=== PATIENT | male | born 1960 | race Caucasian/White ===

== ENCOUNTER → 2016-05-25 | Outpatient (CLI) | payer OTHER ==
[~2016-05-25] MED LIST: ACETAMINOPHEN TAB 500 MG TAB PO ONE; LORATADINE 10 MG TAB PO ONE; SODIUM CHLORIDE 0.9% 250 ML in EMPTY BAG 1 BAG IV PRN; SODIUM CHLORIDE 0.9% 500 ML in EMPTY BAG 1 BAG IV PRN
[2016-05-25 09:00] VITALS: BP 150/83; PULSE 55; RESP 20
[2016-05-25 10:09] VITALS: TEMP 98.3
== END ==
LOC: PROCWHC3 07:05
PROVIDERS: ATTEND Physician Assistant
DX: K50.10 Crohn's disease of large intestine without complications (principal)
CPT/HCPCS: 96361; 96413; 96415; J1745

== ENCOUNTER → 2016-07-20 | Outpatient (CLI) | payer BC, OTHER ==
[2016-07-20 07:56] VITALS: TEMP 98.8
[2016-07-20 09:17] VITALS: BP 154/97; PULSE 72; RESP 18
== END ==
LOC: PROCWHC3 07:43
PROVIDERS: ATTEND Physician Assistant
DX: K50.10 Crohn's disease of large intestine without complications (principal)
CPT/HCPCS: 96361; 96413; 96415; J1745

== ENCOUNTER → 2018-11-15 | Outpatient (CLI) | payer BC, OTHER | END | disposition home or self-care (01) | LOC: LABWHC1 14:10 | PROVIDERS: ATTEND Orthopaedic Surgery Orthopaedic Surgery of the Spine | DX: Z01.812 Encounter for preprocedural laboratory examination (principal); M50.223 Other cervical disc displacement at C6-C7 level | CPT/HCPCS: 86850; 86900; 86901 ==

== ENCOUNTER 2018-11-16 06:34 | Day surgery (SDC) | payer BC, OTHER ==
[2018-11-15 09:07] VITALS: BMI 25.7
[~2018-11-16 06:34] MED LIST changes: -ACETAMINOPHEN TAB 500 MG TAB PO ONE; +BACITRACIN 50,000 UNIT, POLYMYXIN B 500,000 UNIT in SODIUM CHLORIDE 0.9% IRRIGATIO 1,00... IRRIGATION ONE; +LACTATED RINGERS 1,000 ML IV SCH; +LIDOCAINE 1% 20 ML VIAL (10MG/ML) FOR IV START INTRADERMA PRN; -LORATADINE 10 MG TAB PO ONE; +ONDANSETRON 4 MG/2 ML VIAL IVP ONE; -SODIUM CHLORIDE 0.9% 250 ML in EMPTY BAG 1 BAG IV PRN; -SODIUM CHLORIDE 0.9% 500 ML in EMPTY BAG 1 BAG IV PRN; +ceFAZolin IN SWFI 2 GM/20 ML SYRINGE IVP ONE
[2018-11-16] MEDS ORDERED: PROPOFOL 10 MG/ML 20 ML VIAL IV ONE (07:24)
[2018-11-16] MEDS ORDERED: MIDAZOLAM 2 MG/2 ML VIAL ONE (07:24)
[2018-11-16] MEDS ORDERED: SUCCINYLCHOLINE CHLORIDE 100 MG/5 ML SYR IV ONE (07:24)
[2018-11-16] MEDS ORDERED: fentaNYL (PF) 50 MCG/ML 2 ML AMP ONE (07:24)
[2018-11-16] MEDS ORDERED: LIDOCAINE 1% INJ 10MG/ML (20 ML MDV) ONE (07:24)
[2018-11-16] MEDS ORDERED: DEXAMETHASONE SOD PHOS (MDV) 100 MG/10 ML VIAL ONE (07:24)
[2018-11-16] MEDS ORDERED: GELATIN SPONGE,ABSORB (LARGE) 1 EACH SPONGE TOPICAL ONE (08:00)
[2018-11-16] MEDS ORDERED: LIDOCAINE 0.5%-EPI 1:200,000 50 ML VIAL SQ ONE (08:00)
[2018-11-16] MEDS ORDERED: THROMBIN (BOVINE) 5,000 UNIT VIAL TOPICAL ONE (08:00)
[2018-11-16] MEDS ORDERED: LACTATED RINGERS 1,000 ML IV ONE (09:08)
[2018-11-16] MEDS ORDERED: HYDROmorphone 0.5 MG/0.5 ML SYRINGE IVP PRN (09:19)
[2018-11-16] MEDS ORDERED: BENZOCAINE/MENTHOL LOZENG 1 EACH LOZENGE MUCOUS MEM PRN (09:19)
[2018-11-16] MEDS ORDERED: ONDANSETRON 4 MG/2 ML VIAL IVP PRN (09:19)
[2018-11-16] MEDS ORDERED: HYDROmorphone 1 MG/ML 1 ML SYRINGE IVP PRN (09:19)
[2018-11-16] MEDS ORDERED: HYDROcodone/APAP 5-325MG 1 EACH TAB PO PRN (09:19)
--- NOTE | 2018-11-16 09:26 | P.OP ---
Date of Procedure: 11/16/18 Preoperative Diagnosis: Herniated nucleus pulposus C6 7, right upper shoulder radiculopathy, right upper shoulder and weakness, neck pain Postoperative Diagnosis: Same Anesthesia: GETA Pathology: none sent Condition: stable Disposition: PACU Description of Procedure: BRIEF OPERATIVE NOTE Preoperative Diagnosis:Herniated nucleus pulposus C6 7, right upper shoulder radiculopathy, right upper shoulder and weakness, neck pain Postoperative Diagnosis:Herniated nucleus pulposus C6 7, right upper shoulder radiculopathy, right upper shoulder and weakness, neck pain Procedure: Anterior cervical decompression with discectomy and fusion C6 7 Placement of interbody graft C6 7 Application of anterior cervical plate C6 7 Surgeon: Dr. Ho Senior Behavioral Scientist: Abdiaziz DEL ANGEL who is present throughout the entire the case persistence during positioning, dissection, exposure, visualization, and all crucial elements of the case as well as closure. Anesthesia: General anesthesia Estimated blood loss: Approximately 20 mL Complications: None apparent Components implanted: K2M [place] anterior cervical plate system with screws and a ViKos interbody allograft bone graft Disposition: To recovery room in good stable condition. OPERATIVE INDICATIONS The patient has had significant and severe issues in their neck and upper extremities. He was having significant numbness and tingling and some weakness at his right upper extremity which is causing him significant debility. He was found have a disc herniation with extruded fragment at C6 7 with correlate well with his neck and upper extremity symptoms. The patient has been through conservative treatment. He is not having any lasting benefit despite aggressive conservative care We discussed various treatment options including surgery, and the patient wishes to proceed with surgery We discussed the risk, patient's alternatives and benefits of surgery including but not limited to, risk of bleeding risk of infection, risk of need for further surgery, risk of decreased, loss of motion, muscle function, malunion nonunion, hardware failure, nerve damage, paralysis, heart attack, and . OPERATIVE SUMMARY After discussing all the risks, patient alternatives and benefits at length, the patient elected to proceed with surgical intervention, signed informed consent, and presented for their procedure. The patient was seen and examined in the preoperative holding area and the surgical site was marked. The patient was given antibiotics and brought to the operating room. The patient was positioned on the operating room table in a supine position being careful to pad any bony prominences and pressure points. The patient was sedated and intubated by anesthesia in standard fashion. Once the airway and C- spine were stabilized the patient's arms were padded and tucked at her side, with her shoulders gently taped. The head was placed in a donut pad with the neck in good neutral alignment and position. We were careful to maintain the patient's cervical spine and good neutral alignment and position throughout. The patient was prepped and draped in a normal standard fashion. An appropriate timeout and keystone protocol performed. We were able to proceed with the surgery. The local wound area was infiltrated with local anesthetic. An incision was made transversely approximately 2-1/2 cm over the appropriate levels of C6 7. Dissection was taken down subcutaneously to the level of the platysma which was split in line with its fibers. Dissection was taken with a carotid approach, with the trachea and esophagus medial and the carotid sheath laterally. We dissected down to the anterior surface of the vertebral bodies of C6 7. Intraoperative x-ray was taken which showed a marker at the appropriate level of C6 vertebral body. With the appropriate level positively confirmed, we were able to proceed with discectomy at the appropriate levels of C6 7. All of the operative levels were exposed appropriately. The patient had all their twitches back, and there was no evidence of recurrent laryngeal issue. The wound was copiously irrigated and suctioned dry as had been done periodically throughout the case. At the appropriate level/levels of C6 and 7, I established an annulotomy with an 11 blade scalpel. A discectomy was performed with a combination of pituitary rongeurs, curettes, a high-speed bur, and Kerrison rongeurs. The posterior longitudinal ligament was taken down as were any posterior osteophytes. There was note of obvious disc herniation with extruded disc fragments particular to the right side causing severe right foraminal stenosis. These disc herniations were removed appropriately. This gave good central and bilateral foraminal decompression. There is no evidence of any dural tear or leak. The endplates were prepared with a high-speed bur. With the endplates in good parallel position, I was able to size for the appropriate size interbody graft. The wound was irrigated and suctioned dry the graft was prepared and malleted into position. It had good alignment and position with the anterior surface flush with the anterior surface of the vertebral bodies of C6 7. With the grafts intact, I was able to measure and contour and appropriate sized plate. The plate was positioned at the midline over the appropriate levels of C6 7. Screw holes were established with a hand drill and drill guide. Screws were placed in good alignment and position with excellent bony purchase. They were seated under the locking device. The construct was checked and found to be stable. Intraoperative x-ray was taken which showed good alignment and position of the implants at the appropriate levels. There was no evidence of any dural tear or leak. Good hemostasis was maintained. The wound was copiously irrigated and suctioned dry as had been done periodically throughout the case. The platysma was closed with absorbable suture. The subcutaneous tissue was closed. The subcuticular tissue was closed with absorbable suture. The wound was cleaned and dried and dressed appropriately. A soft cervical collar was placed appropriately. The patient was woken up by anesthesia, extubated, transferred back gently to their hospital bed and brought to the recovery room in good stable condition. The patient will be admitted to the hospital for appropriate postoperative care, medical management and monitoring. We will continue to follow them closely about the postoperative course.
[2018-11-16] MEDS ORDERED: SODIUM CHLORIDE 0.9% 1,000 ML IV SCH (09:30)
[2018-11-16 09:36] VITALS: TEMP 97.1
[2018-11-16] MEDS ORDERED: hydrALAZINE HCL 20 MG/ML 1 ML VIAL IVP ONE (09:40)
[2018-11-16] MEDS: HYDROmorphone 0.5 MG/0.5 ML SYRINGE IVP PRN ×2 (09:47→09:54)
[2018-11-16 10:45] VITALS: RESP 18
[2018-11-16 10:47] VITALS: BP 129/74; PULSE 68
--- NOTE | 2018-11-16 10:59 | XR ---
EXAMINATION TYPE: XR cervical spine 1V, XR cervical spine 1V DATE OF EXAM: 11/16/2018 COMPARISON: NONE HISTORY: Needle placement. Neck pain. Cervical spinal surgery. TECHNIQUE/FINDINGS: Single crosstable lateral view of the cervical spine was obtained in the OR. Initial image demonstrat es needle localization at the C6 vertebral body. Patient is noted to be intubated with straightening of usual cervical lordosis and moderate multilevel degenerative disc disease. Visualized vertebral maryana dy heights are maintained. The second image, also intraoperative crosstable lateral demonstrates anterior cervical fusion device bridging the C6-C7 vertebral bodies with nonvisualization of the remainder of the cervical thoracic junction. The patient is again intubated with straightening of usual cervical lordosis and degenerati ve disc disease IMPRESSION: Intraoperative localization of the cervical spine at C6 and subsequent anterior cervical fusion device placement at C6-C7.
[2018-11-16] MEDS ORDERED: ceFAZolin IN SWFI 2 GM/20 ML SYRINGE IVP SCH (16:00)
[2018-11-17] MEDS ORDERED: azaTHIOprine 50 MG TAB PO SCH (09:00)
== END 2018-11-16 11:00 | disposition home or self-care (01) ==
LOC: OR 06:34
PROVIDERS: ATTEND Orthopaedic Surgery Orthopaedic Surgery of the Spine
DX: M50.123 Cervical disc disorder at C6-C7 level with radiculopathy (principal); I10 Essential (primary) hypertension; K50.90 Crohn's disease, unspecified, without complications; Z79.899 Other long term (current) drug therapy; Z88.0 Allergy status to penicillin
CPT/HCPCS: 86900; 86901; 84132; 86850; 72020; 22551; 22845; 20931; C1713; C1762; J2250; J0360; J2405; J2001; J3010; J1100; J0330; J2704; J1170; J0690

== ENCOUNTER → 2018-12-19 | Outpatient (CLI) | payer BC, OTHER ==
--- NOTE | 2018-12-19 12:58 | CT ---
EXAMINATION TYPE: CT angio chest DATE OF EXAM: 12/19/2018 12:43 PM COMPARISON: CT of abdomen and pelvis dated 04/08/2009 HISTORY: Chest pain and shortness of breath. Post OP CSpine [address] DLP: 534 mGycm Automated exposure control for dose reduction was used. CONTRAST: CTA scan of the thorax is performed with IV Contrast, patient injected with 100 mL of Isovue 370, pul monary embolism protocol. . FINDINGS: LUNGS: Small area of pleural-based thickening seen along the posterior medial right lower lobe measur ing 1.6 x 0.6 cm in AP by transverse dimension with groundglass attenuation inferiorly and the small areas of linear scarring/atelectasis. Otherwise, no evidence of suspicious nodules, masses or infiltr ates. There is no pleural effusion or pneumothorax seen. The tracheobronchial tree is patent. MEDIASTINUM: There is satisfactory enhancement of the pulmonary artery and its branches, there is no CT evidence for pulmonary embolism. There are no greater than 1 cm hilar or mediastinal lymph nodes. No pericardial effusion is seen. OTHER: Visualized upper abdomen is grossly unremarkable. Degenerative changes are seen in the thorac ic spine. No acute compression deformity. IMPRESSION: NO EVIDENCE OF PULMONARY EMBOLISM. NONSPECIFIC AREA OF PLEURAL THICKENING SEEN ALONG THE POSTERIOR MEDIAL RIGHT LOWER LOBE, WHICH APPEAR S SIMILAR TO SLIGHTLY INCREASED WHEN COMPARED TO 2008 AND IS FAVORED TO REPRESENT CHRONIC FINDINGS. I F FURTHER EVALUATION IS REQUIRED, CONSIDER REPEAT EXAM IN ONE YEAR TO ENSURE STABILITY.
== END | disposition home or self-care (01) ==
LOC: RADCTMAIN 12:12
PROVIDERS: ATTEND Family Medicine
DX: J98.4 Other disorders of lung (principal)
CPT/HCPCS: 71275

== ENCOUNTER 2020-03-15 11:23 | Day surgery (SDC) | payer BC, OTHER ==
[2020-03-13 12:44] VITALS: BMI 25.7
[~2020-03-15 11:23] MED LIST changes: -BACITRACIN 50,000 UNIT, POLYMYXIN B 500,000 UNIT in SODIUM CHLORIDE 0.9% IRRIGATIO 1,00... IRRIGATION ONE; -LIDOCAINE 1% 20 ML VIAL (10MG/ML) FOR IV START INTRADERMA PRN; -ONDANSETRON 4 MG/2 ML VIAL IVP ONE; -ceFAZolin IN SWFI 2 GM/20 ML SYRINGE IVP ONE
[2020-03-15 12:21] VITALS: RESP 16; TEMP 98.5
[2020-03-15] MEDS ORDERED: PROPOFOL 10 MG/ML 20 ML VIAL IV ONE (12:50)
--- NOTE | 2020-03-15 13:11 | P.PCN ---
Date of Procedure: 03/15/20 Procedure(s) Performed: BRIEF HISTORY: Patient is a 60-year-old pleasant white male scheduled for an elective colonoscopy as a part of surveillance of long-standing history of Crohn's colitis diagnosed in 1997. In the maintained on azathioprine and Remicade infusions and remains in clinical remission. Last colonoscopy was 3 years ago. PROCEDURE PERFORMED: Colonoscopy with biopsy and snare polypectomy. PREOPERATIVE DIAGNOSIS: Long-standing history of Crohn's colitis. IV sedation per Anesthesia. PROCEDURE: After informed consent was obtained, the patient, was brought into the endoscopy unit. IV sedation was administered by Anesthesia under continuous monitoring. Digital rectal examination was normal. Initially the Olympus CF-160 flexible video colonoscope was then inserted in the rectum, gradually advanced into the cecum without any difficulty. Careful examination was performed as the scope was gradually being withdrawn. Ileocecal valve and the appendiceal orifice were visualized and appeared normal. Prep was excellent. Mucosa of the cecum, ascending colon appeared normal. There was a benign-appearing stricture with pseudopolyps noted in the proximal transverse colon but in the proximal descending colon with normal appearing mucosa with multiple pseudopolyps and random biopsies were done from this area. There was a 1 cm polyp noted in the sigmoid colon at 30 cm from the anal verge was removed by snare polypectomy. Rest of the sigmoid colon, and rectum appeared normal. Retroflexion was performed in the rectum and no lesions were seen. Random biopsies were done from cecum to rectum at every 10 cm intervals to rule out dysplasia. The patient tolerated the procedure well. IMPRESSION: 1 cm sigmoid colon polyp status post polypectomy Proximal transverse colon early stricture with multiple pseudopolyps active colitis status post biopsy Proximal Descending colon early stricture. Scattered pseudopolyps RECOMMENDATIONS: Findings of this examination were discussed with the patientas well as his family. He was advised to follow with the biopsy results. If the biopsy does not show any evidence of dysplasia, he can have a repeat colonoscopy in 2 years.
[2020-03-15 13:52] VITALS: BP 131/78; PULSE 78
== END 2020-03-15 13:53 | disposition home or self-care (01) ==
LOC: ORWHC2ENDO 11:23
PROVIDERS: ATTEND Internal Medicine Gastroenterology
DX: Z12.11 Encounter for screening for malignant neoplasm of colon (principal); D12.5 Benign neoplasm of sigmoid colon; K50.10 Crohn's disease of large intestine without complications; K56.699 Other intestinal obstruction unspecified as to partial versus complete obstruction; Z79.899 Other long term (current) drug therapy; Z88.0 Allergy status to penicillin; Z98.890 Other specified postprocedural states
CPT/HCPCS: 88305; 45380; 45385; J2704

== ENCOUNTER → 2020-08-13 | Outpatient (CLI) | payer BC, OTHER ==
[~2020-08-13] MED LIST changes: +INFLIXIMAB-DYYB 500 MG in SODIUM CHLORIDE 0.9% 250 ML IV NR; -LACTATED RINGERS 1,000 ML IV SCH; +SODIUM CHLORIDE 0.9% 500 ML 500 ML in EMPTY BAG 1 BAG IV PRN
[2020-08-13 08:24] VITALS: RESP 16; TEMP 98.5
[2020-08-13 10:06] VITALS: BP 139/85; PULSE 73
== END | disposition home or self-care (01) ==
LOC: PROCWHC3 08:02
PROVIDERS: ATTEND Internal Medicine Gastroenterology
DX: K50.10 Crohn's disease of large intestine without complications (principal)
CPT/HCPCS: 96365; 96366; Q5103

== ENCOUNTER → 2020-10-08 | Outpatient (CLI) | payer OTHER ==
[2020-10-08 08:20] VITALS: RESP 16; TEMP 98.4
[2020-10-08 09:27] VITALS: BP 154/68; PULSE 74
== END | disposition home or self-care (01) ==
LOC: PROCWHC3 07:37
PROVIDERS: ATTEND Internal Medicine Gastroenterology
DX: Z51.11 Encounter for antineoplastic chemotherapy (principal); K50.10 Crohn's disease of large intestine without complications
CPT/HCPCS: 96413; 96415; Q5103

== ENCOUNTER → 2020-12-10 | Outpatient (CLI) | payer OTHER ==
[2020-12-10 07:38] VITALS: RESP 16; TEMP 98
[2020-12-10 08:57] VITALS: BP 146/85; PULSE 65
== END ==
LOC: PROCWHC3 07:15
PROVIDERS: ATTEND Internal Medicine Gastroenterology
DX: K50.10 Crohn's disease of large intestine without complications (principal); Z88.0 Allergy status to penicillin
CPT/HCPCS: 96413; 96415; Q5103

== ENCOUNTER → 2021-02-11 | Outpatient (CLI) | payer OTHER ==
[2021-02-11 08:10] VITALS: RESP 16; TEMP 98.3
[2021-02-11 09:33] VITALS: BP 171/92; PULSE 69
== END ==
LOC: PROCWHC3 07:37
PROVIDERS: ATTEND Internal Medicine Gastroenterology
DX: K50.10 Crohn's disease of large intestine without complications (principal); Z88.0 Allergy status to penicillin
CPT/HCPCS: 96413; 96415; Q5103

== ENCOUNTER → 2021-04-08 | Outpatient (CLI) | payer OTHER ==
[2021-04-08 07:55] VITALS: TEMP 97.6
[2021-04-08 09:09] VITALS: RESP 16
[2021-04-08 09:41] VITALS: BP 150/97; PULSE 76
== END | disposition home or self-care (01) ==
LOC: PROCWHC3 07:37
PROVIDERS: ATTEND Internal Medicine Gastroenterology
DX: K50.10 Crohn's disease of large intestine without complications (principal); Z88.0 Allergy status to penicillin
CPT/HCPCS: 96413; 96415; Q5103

== ENCOUNTER → 2021-06-12 | Outpatient (CLI) | payer OTHER ==
[2021-06-12 07:43] VITALS: RESP 16; TEMP 98.2
[2021-06-12 09:21] VITALS: BP 161/99; PULSE 72
== END ==
LOC: PROCWHC3 07:30
PROVIDERS: ATTEND Internal Medicine Gastroenterology
DX: K50.10 Crohn's disease of large intestine without complications (principal); Z88.0 Allergy status to penicillin
CPT/HCPCS: 96413; 96415; Q5103

== ENCOUNTER → 2021-08-07 | Outpatient (CLI) | payer OTHER ==
[2021-08-07 07:56] VITALS: RESP 16; TEMP 98
[2021-08-07 09:19] VITALS: BP 127/77; PULSE 62
== END ==
LOC: PROCWHC3 07:33
PROVIDERS: ATTEND Internal Medicine Gastroenterology
DX: K50.10 Crohn's disease of large intestine without complications (principal); Z88.0 Allergy status to penicillin
CPT/HCPCS: 96413; 96415; Q5103

== ENCOUNTER → 2021-10-17 | Outpatient (CLI) | payer OTHER ==
[2021-10-17 07:54] VITALS: TEMP 98.5
[2021-10-17 08:46] VITALS: PULSE 64
[2021-10-17 09:21] VITALS: BP 146/82; RESP 15
== END ==
LOC: PROCWHC3 07:25
PROVIDERS: ATTEND Internal Medicine Gastroenterology
DX: K50.10 Crohn's disease of large intestine without complications (principal); Z88.0 Allergy status to penicillin
CPT/HCPCS: 96413; 96415; Q5103

== ENCOUNTER → 2021-12-22 | Outpatient (CLI) | payer OTHER ==
[2021-12-22 07:42] VITALS: RESP 16; TEMP 98.1
[2021-12-22 09:12] VITALS: BP 138/72; PULSE 71
== END ==
LOC: PROCWHC3 07:33
PROVIDERS: ATTEND Internal Medicine Gastroenterology
DX: K50.10 Crohn's disease of large intestine without complications (principal); Z88.0 Allergy status to penicillin
CPT/HCPCS: 96413; 96415; Q5103

== ENCOUNTER → 2022-02-23 | Outpatient (CLI) | payer OTHER ==
[2022-02-23 07:57] VITALS: TEMP 98.1
[2022-02-23 08:42] VITALS: RESP 16
[2022-02-23 08:56] VITALS: PULSE 76
[2022-02-23 09:31] VITALS: BP 170/95
== END | disposition home or self-care (01) ==
LOC: PROCWHC3 07:43
PROVIDERS: ATTEND Internal Medicine Gastroenterology
DX: K50.10 Crohn's disease of large intestine without complications (principal); Z88.0 Allergy status to penicillin
CPT/HCPCS: 96413; 96415; Q5103

== ENCOUNTER 2022-03-13 07:19 | Day surgery (SDC) | payer OTHER ==
[2022-03-11 14:49] VITALS: BMI 25.4
[~2022-03-13 07:19] MED LIST changes: -INFLIXIMAB-DYYB 500 MG in SODIUM CHLORIDE 0.9% 250 ML IV NR; +LACTATED RINGERS 1,000 ML IV SCH; +LIDOCAINE 1% (10MG/ML) FOR IV START INTRADERMA PRN; -SODIUM CHLORIDE 0.9% 500 ML 500 ML in EMPTY BAG 1 BAG IV PRN
[2022-03-13 07:55] VITALS: RESP 16; TEMP 97.8
[2022-03-13] MEDS ORDERED: LIDOCAINE 2% INJ 20 MG/ML (2 ML VIAL) ONE (09:00)
[2022-03-13] MEDS ORDERED: PROPOFOL 10 MG/ML 20 ML VIAL IV ONE (09:00)
--- NOTE | 2022-03-13 09:25 | P.PCN ---
Date of Procedure: 03/13/22 Procedure(s) Performed: BRIEF HISTORY: Patient is a 62-year-old [place] scheduled for an elective colonoscopy as a part of surveillance of long-standing history of Crohn's colitis diagnosed in 1997. His presently maintained on Imuran 100 mg daily and Effexor every 8 weeks. PROCEDURE PERFORMED: Colonoscopy with random biopsy. PREOPERATIVE DIAGNOSIS: Surveillance of long-standing history of Crohn's colitis. IV sedation per Anesthesia. PROCEDURE: After informed consent was obtained, the patient, was brought into the endoscopy unit. IV sedation was administered by Anesthesia under continuous monitoring. Digital rectal examination was normal. Initially the Olympus CF-160 flexible video colonoscope was then inserted in the rectum, gradually advanced into the mid transverse colon there was a stricture identified and the scope could not be advanced to the stricture. This endoscope was removed and a pediatric colonoscopy was introduced into the rectum and with gentle manipulation advanced into the cecum without any difficulty. Careful examination was performed as the scope was gradually being withdrawn. Ileocecal valve and the appendiceal orifice were visualized and appeared normal. Prep was excellent. Mucosa of the cecum, ascending colon, appeared normal. In the hepatic flexure there was an early stricture identified with scattered pseudopolyps which were biopsied. There was another early stricture in the mid transverse colon and with multiple pseudopolyps in this area was also biopsied. There was a tight stricture in the proximal descending colon at 60 cm from the anal verge with multiple scattered pseudopolyps which was biopsied. Rest of the transverse colon, descending colon, sigmoid colon, and rectum appeared normal. Retroflexion was performed in the rectum and no lesions were seen. The patient tolerated the procedure well. IMPRESSION: Early stricture in the hepatic flexure and mid transverse colon with no active colitis Tight proximal descending stricture colon with multiple pseudopolyps in this area and this area was traversed into a pediatric scopeNo evidence of active colitis or colorectal neoplasia Rest of the colon appeared normal RECOMMENDATIONS: Findings of this examination were discussed with the patient well as his family.. He was advised to follow with the biopsy results. She will continue to be maintained on azathioprine 100 mg daily and Remicade infusions every 8 weeks. If the biopsy does not show any evidence of stricturing repeat colonoscopy in 2 years.
[2022-03-13 09:50] VITALS: BP 180/89; PULSE 70
== END 2022-03-13 10:01 | disposition home or self-care (01) ==
LOC: ORWHC2ENDO 07:19
PROVIDERS: ATTEND Internal Medicine Gastroenterology
DX: Z12.11 Encounter for screening for malignant neoplasm of colon (principal); Z87.19 Personal history of other diseases of the digestive system; Z88.0 Allergy status to penicillin
CPT/HCPCS: 45380; J2704; J2001; 88305

== ENCOUNTER → 2022-04-28 | Outpatient (CLI) | payer OTHER ==
[~2022-04-28] MED LIST changes: +INFLIXIMAB-DYYB 500 MG in SODIUM CHLORIDE 0.9% 250 ML IV NR; -LACTATED RINGERS 1,000 ML IV SCH; -LIDOCAINE 1% (10MG/ML) FOR IV START INTRADERMA PRN; +SODIUM CHLORIDE 0.9% 500 ML 500 ML in EMPTY BAG 1 BAG IV PRN
[2022-04-28 07:56] VITALS: RESP 16; TEMP 97.8
[2022-04-28 09:32] VITALS: BP 151/86; PULSE 63
== END ==
LOC: PROCWHC3 07:42
PROVIDERS: ATTEND Internal Medicine Gastroenterology
DX: K50.10 Crohn's disease of large intestine without complications (principal); Z88.0 Allergy status to penicillin
CPT/HCPCS: 96413; 96415; Q5103

== ENCOUNTER → 2022-08-27 | Outpatient (CLI) | payer OTHER ==
[2022-08-27 07:40] VITALS: RESP 16; TEMP 98
[2022-08-27 09:16] VITALS: BP 147/86; PULSE 73
== END ==
LOC: PROCWHC3 07:26
PROVIDERS: ATTEND Internal Medicine Gastroenterology
DX: K50.10 Crohn's disease of large intestine without complications (principal); Z88.0 Allergy status to penicillin
CPT/HCPCS: 96413; 96415; Q5103

== ENCOUNTER → 2022-10-29 | Outpatient (CLI) | payer OTHER ==
[2022-10-29 07:40] VITALS: RESP 16; TEMP 98
[2022-10-29 08:39] VITALS: BP 182/94; PULSE 71
== END ==
LOC: PROCWHC3 07:25
PROVIDERS: ATTEND Internal Medicine Gastroenterology
DX: K50.10 Crohn's disease of large intestine without complications (principal)
CPT/HCPCS: 96413; Q5103; 96415

== ENCOUNTER → 2023-01-01 | Outpatient (CLI) | payer OTHER ==
[2023-01-01 08:08] VITALS: RESP 16; TEMP 98.2
[2023-01-01 09:01] VITALS: PULSE 62
[2023-01-01 09:32] VITALS: BP 139/85
== END ==
LOC: PROCWHC3 07:46
PROVIDERS: ATTEND Internal Medicine Gastroenterology
DX: K50.90 Crohn's disease, unspecified, without complications (principal)
CPT/HCPCS: 96413; 96415

== ENCOUNTER → 2023-03-05 | Outpatient (CLI) | payer OTHER ==
[2023-03-05 08:02] VITALS: TEMP 98.2
[2023-03-05 08:45] VITALS: RESP 16
[2023-03-05 09:27] VITALS: BP 147/81; PULSE 63
== END ==
LOC: PROCWHC3 07:31
PROVIDERS: ATTEND Internal Medicine Gastroenterology
DX: K50.90 Crohn's disease, unspecified, without complications (principal)
CPT/HCPCS: 96413; 96415; Q5103

== ENCOUNTER → 2023-04-30 | Outpatient (CLI) | payer OTHER ==
[2023-04-30 08:23] VITALS: RESP 16; TEMP 97.7
[2023-04-30 10:29] VITALS: BP 116/69; PULSE 65
== END ==
LOC: PROCWHC3 08:03
PROVIDERS: ATTEND Internal Medicine Gastroenterology
DX: K50.90 Crohn's disease, unspecified, without complications (principal)
CPT/HCPCS: 96413; 96415; Q5103

== ENCOUNTER → 2023-06-23 | Outpatient (CLI) | payer OTHER ==
--- NOTE | 2023-06-26 11:35 | MR ---
EXAMINATION TYPE: MR lumbar spine wo con DATE OF EXAM: 06/23/2023 3:01 PM CLINICAL INDICATION:Male, 63 years old with history of M54.16 RADICULOPATHY; , Low back pain that rad iates down both legs COMPARISON: None TECHNIQUE: Multi planar, multi sequence imaging was performed utilizing: T1-weighted, T2-weighted, a nd turbo inversion recovery imaging of the lumbar spine. IV Contrast: cc . (None if empty) FINDINGS: Alignment: The lumbar vertebral bodies have preserved heights and alignment. Cord: The conus medullaris and the distal spinal cord appear unremarkable with regards to their signa l intensity and morphology. Bones/Discs: Multilevel disc degeneration with osteophyte formation and facet joint arthropathy. Mult ilevel disc desiccation is present. T12-L1: Disc bulge and facet joint arthropathy result in mild spinal canal and moderate to severe brina ateral bilateral neural foraminal stenosis. L1-L2: Disc bulge and facet joint arthropathy result in mild spinal canal and moderate left and moder [id number] right neural foraminal stenosis. L2-L3: Disc bulge and facet joint arthropathy result in mild spinal canal and moderate to severe bila teral neural foraminal stenosis. L3-L4: Disc bulge and facet joint arthropathy result in mild spinal canal and mild to moderate bilate ral neural foraminal stenosis. L4-L5: Disc bulge and facet joint arthropathy result in mild spinal canal and mild to moderate bilate ral neural foraminal stenosis. L5-S1: The disc is rounded posterior morphology without significant spinal canal stenosis. Facet join t arthropathy with mild bilateral neural foraminal stenosis. No significant spinal canal or neural foraminal stenosis in the remainder of the visualized levels. Other findings: None. IMPRESSION: 1. No definitive evidence of disc herniation or significant spinal canal stenosis. 2. Multilevel disc degeneration with associated osteoarthritic changes with moderate to severe bilat eral L2-L3, moderate to severe right L1-L2 and moderate severe bilateral T12-L1.
== END | disposition home or self-care (01) ==
LOC: RADMRIMAIN 13:48
PROVIDERS: ATTEND Family Medicine
DX: M47.26 Other spondylosis with radiculopathy, lumbar region (principal); M51.16 Intervertebral disc disorders with radiculopathy, lumbar region; G57.93 Unspecified mononeuropathy of bilateral lower limbs; G25.81 Restless legs syndrome
CPT/HCPCS: 72148

== ENCOUNTER → 2023-07-02 | Outpatient (CLI) | payer OTHER ==
[2023-07-02] MEDS: SODIUM CHLORIDE 0.9% 500 ML 500 ML in EMPTY BAG 1 BAG IV PRN (08:14)
[2023-07-02 08:17] VITALS: RESP 16; TEMP 97.8
[2023-07-02] MEDS: INFLIXIMAB-DYYB 500 MG in SODIUM CHLORIDE 0.9% 250 ML IV NR (08:35)
[2023-07-02 09:57] VITALS: BP 114/69; PULSE 67
== END ==
LOC: PROCWHC3 07:57
PROVIDERS: ATTEND Internal Medicine Gastroenterology
DX: K50.90 Crohn's disease, unspecified, without complications (principal)
CPT/HCPCS: 96413; 96415; Q5103

== ENCOUNTER → 2023-09-03 | Outpatient (CLI) | payer OTHER ==
[2023-09-03] MEDS: SODIUM CHLORIDE 0.9% 500 ML 500 ML in EMPTY BAG 1 BAG IV PRN (07:54)
[2023-09-03] MEDS: INFLIXIMAB-DYYB 500 MG in SODIUM CHLORIDE 0.9% 250 ML IV NR (07:58)
[2023-09-03 08:08] VITALS: RESP 16; TEMP 97.5
[2023-09-03 08:52] VITALS: PULSE 57
[2023-09-03 09:39] VITALS: BP 97/63
== END ==
LOC: PROCWHC3 07:36
PROVIDERS: ATTEND Internal Medicine Gastroenterology
DX: K50.90 Crohn's disease, unspecified, without complications (principal)
CPT/HCPCS: 96413; 96415; Q5103

== ENCOUNTER → 2023-09-21 | Outpatient (CLI) | payer OTHER ==
[~2023-09-21] MED LIST changes: -INFLIXIMAB-DYYB 500 MG in SODIUM CHLORIDE 0.9% 250 ML IV NR; +IODINE/POTASSIUM IODIDE 14 ML BOTTLE ONE; -SODIUM CHLORIDE 0.9% 500 ML 500 ML in EMPTY BAG 1 BAG IV PRN
--- NOTE | 2023-09-21 19:16 | NM ---
EXAMINATION TYPE: NM DatScan Brain SPECT DATE OF EXAM: 09/21/2023 COMPARISON: NONE CLINICAL INDICATION: Male, 63 years old with history of G25.2 OTHER SPECIFIED FORMS OF TREMOR; TECHNIQUE: 10 drops of Lugol's solution was administered 1 hour prior to injection as a thyroid bloc chris agent. After the administration of 4.36 mCi I-123 Ioflupane DaTscan. Images obtained 3 hours p ost injection. SPECT images of the brain were acquired with axial and coronal reconstructions. FINDINGS: No abnormal increased background activity. There is fairly symmetric bilateral striatal activity. IMPRESSION: The normal appearance is against a diagnosis of Parkinson's disease or a parkinsonian syndrome. It ca n be seen in normal individuals and also those with essential tremor.
== END | disposition home or self-care (01) ==
LOC: RADNMMAIN 10:49
PROVIDERS: ATTEND Family Medicine
DX: G20.C Parkinsonism, unspecified (principal); G25.2 Other specified forms of tremor
CPT/HCPCS: 78803; A9584

== ENCOUNTER → 2023-11-05 | Outpatient (CLI) | payer OTHER ==
[2023-11-05] MEDS: SODIUM CHLORIDE 0.9% 500 ML 500 ML in EMPTY BAG 1 BAG IV PRN (07:53)
[2023-11-05] MEDS: INFLIXIMAB-DYYB 500 MG in SODIUM CHLORIDE 0.9% 250 ML IV NR (08:00)
[2023-11-05 09:04] VITALS: RESP 16; TEMP 98
[2023-11-05 09:06] VITALS: BP 140/88; PULSE 61
== END ==
LOC: PROCWHC3 07:30
PROVIDERS: ATTEND Internal Medicine Gastroenterology
DX: K50.90 Crohn's disease, unspecified, without complications (principal)
CPT/HCPCS: 96413; 96415; Q5103

== ENCOUNTER → 2023-11-24 | Outpatient (CLI) | payer OTHER ==
--- NOTE | 2023-11-24 21:36 | MR ---
EXAMINATION TYPE: MR brain wo/w con DATE OF EXAM: 11/24/2023 COMPARISON: Correlation ANTWAN scan 09/21/2023 HISTORY: 63-year-old male G2 5.0 Essential tremors TECHNIQUE: Multiplanar, multisequence images of the brain and brainstem were acquired before and aft er administration of 8.5 mL IV Gadavist. Diffusion weighted imaging is performed. FINDINGS: No evidence for acute infarction, hemorrhage, mass, mass effect, midline shift, herniation, effacemen t of basal cisterns, or extra-axial fluid collection. The ventricles and sulci are age-appropriate. Major intracranial flow voids are intact. T2/FLAIR weighted sequences show very minimal scattered punctate bright signal foci particularly in t he subcortical region of the posterior frontal and parietal lobes. Less than 5 foci are present on ei ther side. Midline structures demonstrate normal morphology. The craniocervical junction is normal. Post contrast images demonstrate no evidence of pathologic enhancement. Dural venous sinuses are pat ent. Moderate mucosal thickening throughout the ethmoid air cells. Mild within the maxillary and frontal s inuses. Globes are intact. Rightward nasal septal deviation. IMPRESSION: 1. No acute intracranial abnormality seen. No enhancing lesions. 2. Only trace burden of chronic small vessel ischemic disease. 3. Moderate chronic ethmoid sinus disease.
== END | disposition home or self-care (01) ==
LOC: RADMRIMAIN 11:00
PROVIDERS: ATTEND Family Medicine
DX: G25.0 Essential tremor (principal); I67.82 Cerebral ischemia; J32.2 Chronic ethmoidal sinusitis
CPT/HCPCS: 70553; A9585

== ENCOUNTER → 2024-03-17 | Outpatient (CLI) | payer OTHER ==
[~2024-03-17] MED LIST changes: -IODINE/POTASSIUM IODIDE 14 ML BOTTLE ONE; +SODIUM CHLORIDE 0.9% 500 ML 500 ML in EMPTY BAG 1 BAG IV PRN
[2024-03-17 07:51] VITALS: RESP 16; TEMP 98.2
[2024-03-17] MEDS: SODIUM CHLORIDE 0.9% 250 ML in EMPTY BAG 1 BAG IV PRN (07:52)
[2024-03-17] MEDS: INFLIXIMAB-DYYB 500 MG in SODIUM CHLORIDE 0.9% 250 ML IV NR (08:01)
[2024-03-17 09:10] VITALS: BP 117/75; PULSE 74
== END ==
LOC: PROCWHC3 07:33
PROVIDERS: ATTEND Internal Medicine Gastroenterology
DX: K50.90 Crohn's disease, unspecified, without complications (principal)
CPT/HCPCS: 96413; 96415; Q5103

== ENCOUNTER → 2024-05-19 | Outpatient (CLI) | payer OTHER ==
[~2024-05-19] MED LIST changes: +SODIUM CHLORIDE 0.9% 250 ML in EMPTY BAG 1 BAG IV PRN; -SODIUM CHLORIDE 0.9% 500 ML 500 ML in EMPTY BAG 1 BAG IV PRN
[2024-05-19 07:43] VITALS: RESP 16; TEMP 98
[2024-05-19] MEDS: SODIUM CHLORIDE 0.9% 500 ML 500 ML in EMPTY BAG 1 BAG IV PRN (07:43)
[2024-05-19] MEDS: INFLIXIMAB-DYYB 500 MG in SODIUM CHLORIDE 0.9% 250 ML IV NR (08:04)
[2024-05-19 09:10] VITALS: BP 146/88; PULSE 75
== END ==
LOC: PROCWHC3 07:23 → EDSTATUS 07:30
PROVIDERS: ATTEND Internal Medicine Gastroenterology
DX: K50.90 Crohn's disease, unspecified, without complications (principal)
CPT/HCPCS: 96413; 96415; Q5103

== ENCOUNTER → 2024-07-21 | Outpatient (CLI) | payer OTHER ==
[2024-07-21 07:41] VITALS: RESP 16; TEMP 97.6
[2024-07-21] MEDS: SODIUM CHLORIDE 0.9% 500 ML 500 ML in EMPTY BAG 1 BAG IV PRN (07:44)
[2024-07-21] MEDS: INFLIXIMAB-DYYB 500 MG in SODIUM CHLORIDE 0.9% 200 ML IV NR (08:14)
[2024-07-21 09:18] VITALS: BP 137/87; PULSE 76
== END ==
LOC: PROCWHC3 07:29
PROVIDERS: ATTEND Internal Medicine Gastroenterology
DX: K50.90 Crohn's disease, unspecified, without complications (principal)
CPT/HCPCS: 96413; 96415; Q5103

== ENCOUNTER → 2024-08-31 | Outpatient (CLI) | payer OTHER ==
--- NOTE | 2024-09-02 10:57 | MR ---
EXAMINATION TYPE: MR pancreas / mrcp wo/w con DATE OF EXAM: 08/31/2024 10:12 AM INDICATION: Patient age:Male; 64 years old; Reason for study: K86.89 mass head of pancreas; [facility]. COMPARISON: CT abdomen and pelvis 06/26/2024, 10/05/2023 TECHNIQUE: Multiplanar multisequence MR imaging of the abdomen was performed both before and after t he intravenous administration of 8 mL Gadobutrol. MRCP protocol was utilized. Maximum intensity proje ction and 3-D images were reconstructed of the biliary tree at a separate independent workstation. FINDINGS: LUNG BASES: Redemonstration of pleural-based heterogenous T2 hyperintense lesion along the right medi al lower lung measuring up to 1.7 cm (series 601, image 57). Cardiomegaly. ABDOMEN: LIVER: Normal morphology. There is moderate diffuse hepatic steatosis present. There is no focal hepa tic parenchymal abnormality. Borderline enlarged liver measuring 18.3 cm in CC dimension. BILE DUCTS: CBD 3 mm. There is no intra or extrahepatic biliary ductal dilatation. There is no filli ng defect, stricture, obstructing lesion or biliary wall thickening identified. GALLBLADDER: Several small gallstones identified within the gallbladder neck. No wall thickening or s urrounding inflammatory changes identified. PANCREAS: Normal caliber pancreatic duct. There is a 1.4 cm peripherally enhancing T2 hyperintense cy stic lesion identified within the right lateral aspect of the pancreatic head in the region of the pa ncreatic groove. No surrounding inflammatory changes identified. There may be communication with the first portion of the duodenum. No marrow nodularity or internal enhancement identified. SPLEEN: Within normal limits. ADRENAL GLANDS: Unremarkable. KIDNEYS: There are renal cortical cysts present. No hydronephrosis. BOWEL: Normal caliber. PERITONEUM: No ascites or free air. No fluid collection. VASCULATURE: No abdominal aortic aneurysm. Major abdominal veins are patent. RETROPERITONEUM: Within normal limits. LYMPH NODES: Within normal limits. ABDOMINAL WALL: Unremarkable. MUSCULOSKELETAL: No suspicious osseous abnormality. IMPRESSION: 1. No evidence of biliary dilatation, stricture, filling defect, wall thickening or obstructing mass lesion. 2. There is a 1.3 cm cystic lesion in the region of the pancreatic groove with possible communicatio n with the first portion of the duodenum. Findings may represent a duodenal diverticulum versus cysti c pancreatic neoplasm such as a side branch intraductal papillary mucinous neoplasm versus other etio logies. No enhancing mural nodularity identified. Recommend a follow-up MR in 3-6 months. 3. Cholelithiasis. 4. Hepatic steatosis with borderline enlarged liver. [facility], , 09/02/2024 10:55 AM
== END | disposition home or self-care (01) ==
LOC: RADMRIMAIN 08:43
PROVIDERS: ATTEND Family Medicine
DX: K86.89 Other specified diseases of pancreas (principal); K80.20 Calculus of gallbladder without cholecystitis without obstruction; K76.0 Fatty (change of) liver, not elsewhere classified
CPT/HCPCS: 74183; A9585

== ENCOUNTER → 2024-12-08 | Outpatient (CLI) | payer OTHER ==
[2024-12-08 08:30] VITALS: RESP 16; TEMP 98.3
[2024-12-08] MEDS: SODIUM CHLORIDE 0.9% 500 ML 500 ML in EMPTY BAG 1 BAG IV PRN (08:30)
[2024-12-08] MEDS: INFLIXIMAB-DYYB 500 MG in SODIUM CHLORIDE 0.9% 200 ML IV NR (08:46)
[2024-12-08 09:55] VITALS: BP 158/93; PULSE 80
== END ==
LOC: PROCWHC3 08:05
PROVIDERS: ATTEND Internal Medicine Gastroenterology
DX: K50.90 Crohn's disease, unspecified, without complications (principal)
CPT/HCPCS: 96413; 96415; Q5103